=== PATIENT | female | born 1995 | race Caucasian/White ===

== ENCOUNTER 2023-05-24 18:18 | Emergency (ER) | payer BC, SELFPAY ==
[2023-05-24 18:20] VITALS: BP 123/79; PULSE 79; RESP 18; TEMP 36.4; O2SAT 100
--- NOTE | 2023-05-24 19:51 | ED.ANIMALBIT ---
HPI - Animal Bite General Chief Complaint: Animal Bite Stated Complaint: dog bite Time Seen by Provider: 05/24/23 19:24 Source: patient Mode of arrival: ambulatory Limitations: no limitations History of Present Illness HPI narrative: 27 years old white female came to the emergency room with a dog bite to left eyebrow and upper eyelid prior to arrival. Patient states that she had by her [employer] dog while trying to pull a toothpick out of his mouth. The dog is fully immunized. patient does not know when the last time had a tetanus shot Related Data Allergies Allergy/AdvReac Type Severity Reaction Status Date / Time Penicillins Allergy Rash Verified 05/24/23 18:23 Review of Systems Review of Systems: All systems reviewed & are unremarkable except as noted in HPI and below Exam Narrative: General appearance: Well-developed, well-nourished Skin: Normal color Head: Normocephalic, nontraumatic Eyes: Clear conjunctiva, extraocular muscles intact, no injury of the ankle. , 2 x 2.5 cm Missed skin of the upper half of the left upper eyelid and left eyebrow. Neck: Supple, nontender Chest and respiratory: Airway patent, no respiratory distress, no accessory muscle use Heart: Regular rate/rhythm Musculoskeletal: Normal range of motion, nontender back Neurologic: Alert and oriented ?3, STEWARD/STEWARDESS DECK is normal as tested, no gross motor deficit Course Reevaluation(s) Reevaluation #1: very depressed, crying, Date: 05/26/23 Time: 07:53 Consultations Consultation #1: Dr. Bright, plastic surgeon at [facility] Dr. wagner, foundry helper And [facility] Dr beckwith, ED at [facility] Date: 05/24/23 Time: 20:43 Vital Signs Vital signs: Vital Signs Temperature 36.4 C L 05/24/23 18:20 Pulse Rate 79 05/24/23 18:20 Respiratory Rate 18 05/24/23 18:20 Blood Pressure 123/79 05/24/23 18:20 Pulse Oximetry 100 05/24/23 18:20 Oxygen Delivery Room Air 05/24/23 18:20 Temperature 36.4 C L 05/24/23 18:20 Pulse Rate 79 05/24/23 18:20 Respiratory Rate 18 05/24/23 18:20 Blood Pressure 123/79 05/24/23 18:20 Pulse Oximetry 100 05/24/23 18:20 Oxygen Delivery Room Air 05/24/23 18:20 MDM - Animal Bite MDM Narrative Medical decision making narrative: no bite wound missing skin of the left upper eyelid and the left eyebrow. Patient received a tetanus shot prior to transfer to [facility]. Patient was accepted by the plastic surgeon/ Dr. Bright and foundry helper/Dr. Wagner. Patient declined ambulance transfer and would like to go by private car, significant other at the bedside Differential Diagnosis Differential diagnosis: Likely dog bite Critical Care Time Critical Care Time Critical Care Time: No Discharge Plan Discharge Clinical Impression: Dog bite Patient Disposition: Home, Self-Care Condition: Stable Instructions: Animal Bite (ED) Additional Instructions: [facility] Follow-up/Referrals: PHYSICIAN,TEST FACILITY ENGINEER [Non-Staff] -
[2023-05-24] MEDS: TETANUS,DIPHTHERIA,AC PERTUSSIS ADULT (0.5 ML) BOOSTRIX IM (19:56)
--- NOTE | 2023-05-24 20:52 | PC.NURSE ---
Report called to [facility] ER and given to Stacy CASAREZ. all questions answered at time of report.
== END 2023-05-24 20:55 | disposition home or self-care (01) ==
PROVIDERS: Emergency Provider Emergency Medicine
DX: S01.152A Open bite of left eyelid and periocular area, initial encounter (principal); Z23 Encounter for immunization; W54.0XXA Bitten by dog, initial encounter
CPT/HCPCS: 90471; 90715; 99282

== ENCOUNTER 2023-06-02 17:48 | Emergency (ER) | payer BC, SELFPAY ==
[2023-06-02 18:53] VITALS: BP 128/70; PULSE 87; RESP 16; TEMP 36.3; O2SAT 100
--- NOTE | 2023-06-02 19:52 | ED.WOUNDLAC ---
HPI - Wound/Laceration General Chief Complaint: Wound/Laceration Stated Complaint: Open wound Time Seen by Provider: 06/02/23 19:52 Source: patient, RN notes reviewed and old records reviewed Mode of arrival: ambulatory Limitations: no limitations History of Present Illness HPI narrative: 27 year old female presents to express care with concern of some twitching in her face, Reports that she had dog bite to her left upper eyelid, and eyebrow on the 18th and had plastic surgery at [facility] and evaluation by ophthalmology. Patient states that she is so concerned she will get tetanus, did have tetanus on day of injury in ED prior to transfer. Patient crying and tearful and reports that she is so anxious about getting tetanus and over the whole incident with the dog bite. Patient is tearful, has history of anxiety Onset (ago): day(s) (9) Location: face Patient tetanus UTD: Yes Treatments prior to arrival: other (takinf medications as prescribed) Related Data Home Medications Medication Instructions Recorded Confirmed buspirone 10 mg tablet 10 mg PO DAILY 06/02/23 06/02/23 doxycycline monohydrate 100 mg 100 mg PO DAILY 06/02/23 06/02/23 capsule metronidazole 500 mg tablet 500 mg PO DIRECTED 06/02/23 06/02/23 sertraline 50 mg tablet 50 mg PO DAILY 06/02/23 06/02/23 Allergies Allergy/AdvReac Type Severity Reaction Status Date / Time Penicillins Allergy Rash Verified 06/02/23 19:43 Review of Systems Review of Systems: CONSTITUTIONAL: Denies fever, chills, or sweats. EYES: Denies visual changes, redness, or discharge. ENT: Denies rhinorrhea, congestion, sore throat, or otalgia. CARDIOVASCULAR: Denies chest pain, palpitations, or edema. RESPIRATORY: Denies cough or dyspnea. GASTROINTESTINAL: Denies abdominal pain, nausea, vomiting, or diarrhea. GENITOURINARY: Denies dysuria or hematuria. SKIN: Denies rash or itching. healing wound to left upper eye eyebrow region after having plastics repair at [facility] MUSCULOSKELETAL: Denies back pain, joint pain, or myalgia. NEUROLOGIC: Denies headache, numbness, or weakness. PSYCHIATRIC: Reports anxiety or depression.tearful All systems reviewed & are unremarkable except as noted in HPI and below [facility] Past Medical History Medical History (Updated 06/04/23 @ 12:12 by Estefani Amor NP) Anxiety and depression Congenital deformity of left hand Surgical History Surgical History (Updated 06/04/23 @ 12:13 by Estefani Amor NP) History of plastic surgery of dog bite left upper eye and eye brow. Social History Social History (Updated 06/04/23 @ 12:14 by Estefani Amor NP) Smoking status: Never smoker Alcohol intake: current Alcohol use details: rare social Substance use type: does not use Gender identity (if verbalized by the patient): Female Comments At time of signature, agree with nursing past medical, surgical, social and family history. There is no relevant family history pertinent to the presenting complaint Exam Narrative: GENERAL: Well-appearing, well-nourished, and in no acute distress. HEAD: Normocephalic, healing post plastic surgery repair to left upper eyelid and eye brow after dog bite EYES: PERRLA and EOMI. ENT: Nares clear, no rhinorrhea or epistaxis. Mucous membranes moist. NECK: Supple.no lymphadenopathy CHEST: Clear to auscultation. No respiratory distress.SAO2 100% on room air HEART: Regular rate and rhythm. No murmur heard. Normal peripheral pulses. ABDOMEN: Soft, nontender, nondistended, normal active bowel sounds. EXTREMITIES: Normal range of motion. No edema. SKIN: Warm, dry, no rash. NEURO: No focal deficits. Alert and oriented x3.tearful anxious Course Course Emergency Course: Patient is aware of diagnosis, understands and agrees to treatment plan.? Anticipatory guidance given.? Patient agrees to follow-up as directed and is aware of reasons to seek care at the emergency department. Portions of this recor
== END 2023-06-02 20:14 | disposition home or self-care (01) ==
PROVIDERS: Emergency Provider Registered Nurse
DX: F41.9 Anxiety disorder, unspecified (principal); Z79.899 Other long term (current) drug therapy
CPT/HCPCS: 99213; G0463